=== PATIENT | female | born 1955 | race Caucasian/White ===

== ENCOUNTER 2017-10-22 12:12 | Emergency (ER) | END 2017-10-22 17:45 | disposition home or self-care (01) ==

== ENCOUNTER 2017-10-23 17:57 | Emergency (ER) | END 2017-10-24 01:50 | disposition home or self-care (01) ==

== ENCOUNTER 2017-11-08 21:46 | Emergency (ER) | END 2017-11-08 23:00 | disposition home or self-care (01) ==

== ENCOUNTER 2017-11-20 09:00 | Inpatient (IN) | END 2017-11-20 17:25 | disposition home or self-care (01) | DRG 74 ==

== ENCOUNTER 2017-12-04 21:45 | Emergency (ER) | END 2017-12-04 23:11 | disposition home or self-care (01) ==

== ENCOUNTER 2018-01-18 13:39 | Emergency (ER) | END 2018-01-18 15:24 | disposition home or self-care (01) ==

== ENCOUNTER 2018-06-14 16:59 | Emergency (ER) | END 2018-06-14 18:55 | disposition home or self-care (01) ==

== ENCOUNTER 2018-11-22 22:07 | Emergency (ER) | payer MEDICAID ==
[~2018-11-22] VITALS: Ht 160 cm; Wt 67.0 kg
[~2018-11-22 22:07] MED LIST: ASPI-817 PO; CAPS42.510 TOP; CHOLESTEROL PO; HYDR-3980 PO; HYDR-4011 PO; IBUP-1542 PO; LANT3I SC; LEVO250T22 PO; LYR75 PO; METF500T24 PO; METH5SOL3 PO; NAPH15DR OP; NOVO3I SC; PEG15DRO9 OP; PRED50TA PO; RANI150T35 PO
[2018-11-22 22:09] VITALS: Ht 160 cm; Wt 67.0 kg
[2018-11-23] MEDS ORDERED: IBUPROFEN 200 MG TAB PO ONE
[2018-11-23] MEDS ORDERED: CEPHALEXIN 500 MG CAP PO ONE
[2018-11-23] MEDS ORDERED: TRIMETHOPRIM/SULFAMETHOX (DS) TAB PO ONE
--- NOTE | 2018-11-23 00:01 | ERD ---
ER Documentation Chief Complaint Chief Complaint wound on right toe HPI This is a 63-year-old female who presents to the emergency room with complaint of pain and redness to right great toe X 1 week. States she had a pedicure 2 weeks ago and since that time the end of her toe is becoming red, swollen, painful. No fevers. Patient is diabetic, states her average blood sugar is around 125. ROS All systems reviewed and are negative except as per history of present illness. Medications Home Meds Active Scripts Ibuprofen* (Motrin*) 400 Mg Tab, 400 MG PO Q6, #30 TAB Prov:DERECK LARSEN NP 11/23/18 Cephalexin* (Keflex*) 500 Mg Capsule, 500 MG PO QID for 7 Days, #28 CAP Prov:DERECK LARSEN NP 11/23/18 Sulfamethoxazole/Trimethoprim* (Bactrim Ds* Tablet) 1 Each Tablet, 1 TAB PO BID for 7 Days, #14 TAB Prov:DERECK LARSEN NP 11/23/18 Peg 400/Hypromellose/Glycerin (Visine Dry Eye Relief Drop) 15 Ml Drops, 1 DROP OP Q4H for eye itchiness, #1 BOTTLE Prov:ANTHONY PYLE DO 06/14/18 Naphazoline Hcl/Phenir Mal (Naphcon-A Eye Drops) 15 Ml Drops, 2 DROP OP Q6H for eye itchiness, #1 BOTTLE Prov:ANTHONY PYLE DO 06/14/18 Prednisone* (Prednisone*) 50 Mg Tablet, 50 MG PO DAILY for 5 Days, #5 TAB Prov:ZEV BARRIENTOS MD 01/18/18 Hydrocodone/Acetaminophen ([place] 5-325 Tablet) 1 Each Tablet, 1 EACH PO BID for 7 Days, #14 TAB Prov:ZEV BARRIENTOS MD 01/18/18 Capsaicin (Capsaicin) 42.5 Gm Cream.gm., 1 APPLIC TOP QID, #1 TUB Prov:ZEV BARRIENTOS MD 01/18/18 Hydrocodone/Acetaminophen ([place] 10-325 Tablet) 1 Each Tablet, 1 TAB PO Q6H PRN for PAIN, #20 TAB Prov:JEFFREY MACARIO PA-C 12/04/17 Metformin Hcl* (Metformin Hcl*) 500 Mg Tablet, 500 MG PO WITH BREAKFAST DINNE, #60 TAB Prov:ALVAREZ FREEMAN MD 11/20/17 Insulin Aspart* (Novolog Insulin Pen*) 100 Unit/Ml Soln, 5 UNIT SC WITH MEALS for 30 Days Prov:ALVAREZ FREEMAN MD 11/20/17 Insulin Glargine* (Lantus*) 100 Unit/Ml Soln, 25 UNIT SC DAILY@20 for 30 Days Prov:ALVAREZ FREEMAN MD 11/20/17 Levofloxacin* (Levaquin*) 250 Mg Tablet, 250 MG PO DAILY@06 for 6 Days, TAB Prov:ALVAREZ FREEMAN MD 11/20/17 Methadone Hcl* (Methadone*) 5 Mg/5 Ml Solution, 1 MG PO Q12H, #10 Prov:ALVAREZ FREEMAN MD 11/20/17 Pregabalin* (Lyrica*) 75 Mg Capsule, 75 MG PO BID for 30 Days, CAP Prov:ALVAREZ FREEMAN MD 11/20/17 Hydrocodone/Acetaminophen ([place] 10-325 Tablet) 1 Each Tablet, 1 TAB PO Q6H PRN for PAIN, #30 TAB Prov:DAVID PAREDES DO 11/08/17 Ranitidine Hcl* (Zantac*) 150 Mg Tablet, 150 MG PO BID PRN for EPIGASTRIC PAIN, #30 TAB Prov:NARDA GREEN DO 10/23/17 Ibuprofen* (Motrin*) 600 Mg Tab, 600 MG PO Q6 PRN for PAIN, #30 TAB Prov:DARLING PIERCE MD 10/22/17 Reported Medications [Cholesterol] Unknown Strength No Conflict Check, 1 TAB PO QHS 10/22/17 Aspirin* (Aspirin* EC) 81 Mg Tablet.dr, 81 MG PO DAILY, TAB 10/22/17 Allergies Allergies: Coded Allergies: No Known Allergy (Unverified , 01/18/18) PMhx/Soc History of Surgery: Yes (cataract sx,cholecystectomy) Anesthesia Reaction: No Hx Neurological Disorder: No Hx Respiratory Disorders: No Hx Cardiac Disorders: No Hx Psychiatric Problems: No Hx Miscellaneous Medical Probl: Yes (dm) Hx Alcohol Use: No Hx Substance Use: No Hx Tobacco Use: No Smoking Status: Never smoker FmHx Family History: diabetes Physical Exam Vitals Vital Signs Date Temp Pulse Resp B/P (MAP) Pulse Ox O2 O2 Flow FiO2 Time Delivery Rate 11/23/18 98.2 77 18 168/90 100 Room Air 00:12 (116) 11/22/18 98.0 87 18 176/84 99 22:09 (114) Physical Exam Const: No acute distress Head: Atraumatic Eyes: Normal Conjunctiva ENT: Normal External Ears, Nose and Mouth. Neck: Full range of motion. No meningismus. Resp: Clear to auscultation bilaterally Cardio: Regular rate and rhythm, no murmurs Abd: Soft, non tender, non distended. Normal bowel sounds Skin: No petechiae or rashes. Redness to anterior great toe under nail. No fluctuance, no induration, mild swelling. Ext: No cyanosis, or edema, +csm Neur: Awake and alert Psych: Normal Mood and Affect Results 24 hrs Current Medications Medications Dose Sig/Ilsa Start Time Status Last (Trade) Ordered Route PRN Stop Time Admin Dose Reason Admin 1 tab ONCE ONCE 11/23/18 DC 11/23/18 Trimethoprim/ PO 00:00 00:10 11/23/18 00:01 Sulfamethoxaz ole (Bactrim (Ds)) Cephalexin 500 mg ONCE ONCE 11/23/18 DC 11/23/18 (Keflex) PO 00:00 00:10 11/23/18 00:01 Ibuprofen 400 mg ONCE ONCE 11/23/18 DC 11/23/18 (Motrin) PO 00:00 00:10 11/23/18 00:01 Procedures/MDM This is a 63-year-old female who presents to the emergency room with pain to great right toe after pedicure. ED COURSE: The patient was stable throughout ED course. DIAGNOSTIC IMAGING: none indicated at this time. PROCEDURES: None. Incision and drainage is not indicated at this time as there was no fl uctuance or severe pain or paronychia. Considering patient is diabetic conservative management was discussed with patient and daughter and chosen with instructions for frequent warm soaks, antibiotics, and follow-up in 3-5 days. Discussed potential for I&D with worsening of swelling or pain. MEDICATIONS GIVEN: Ibuprofen, Keflex, Bactrim DS Patient tolerated medication well with no adverse reactions. Patient reported improvement in pain. MDM: This patients soft tissue infection appears to be appropriate for outpatient treatment with close follow-up for reevaluation by a clinician within 24-48 hours. A serious, rapidly progressive infectious process is unlikely based upon the patients presentation and appearance of the infection. Antibiotic treatment has been initiated here and response to treatment will be based on reassessment at close follow-up. The patient has been instructed on signs and symptoms of acute progression of infection and to return immediately if any of these occur. DISPOSITION: The patient has been discharge home to follow-up with community physician. Departure Condition: Stable Patient Instructions: Cellulitis Referrals: [facility] Additional Instructions: Thank you very much for allowing us to participate in your care. Your health and safety is our top priority at [facility]. Use warm soaks of the toe 2-3 times per day. Complete entire course of anti biotics. Use ibuprofen for pain and comfort. Return to the emergency room in 3-5 days for reevaluation. Have prescriptions filled and follow precisely the directions on the label. If the symptoms get worse return to the Emergency Department immediately. DERECK LARSEN NP Nov 23, 2018 00:01
[2018-11-23] MEDS ORDERED: CEPH-443 PO (00:02)
[2018-11-23] MEDS ORDERED: SULF1TAB31 PO (00:02)
[2018-11-23] MEDS ORDERED: IBUP-1561 PO (00:02)
[2018-11-23 00:12] VITALS: BP 168/90; PULSE 77; RESP 18
== END 2018-11-23 00:13 | disposition home or self-care (01) ==
LOC: FTE 22:07
DX: M79.674 Pain in right toe(s) (principal); E11.9 Type 2 diabetes mellitus without complications; Z79.4 Long term (current) use of insulin; Z79.82 Long term (current) use of aspirin
CPT/HCPCS: Z7502; Z7610; 99283

== ENCOUNTER 2019-03-15 15:47 | Inpatient (IN) | payer MEDICAID ==
[~2019-03-15] VITALS: Ht 154.9 cm; Wt 61.9 kg
[~2019-03-15 15:47] MED LIST changes: +CEPH-443 PO; +IBUP-1561 PO; +NITR100C7 PO; +SULF1TAB31 PO
--- NOTE | 2019-03-15 16:12 | ERD ---
ER Documentation Chief Complaint Chief Complaint dizziness and nausea x 4 days HPI The patient is a 64-year-old female, presenting to the ER because of fatigue, headache, dizziness, nausea, back pain for the last 4 days, worse today. She denies fever, chills, neck pain, chest pain, dyspnea, abdominal pain, vomiting, dysuria, diarrhea. She does not smoke nor drink Past medical history: Diabetes mellitus Past surgical history: Appendectomy, hysterectomy ROS All systems reviewed and are negative except as per history of present illness. Medications Home Meds Reported Medications Insulin Glargine* (Lantus*) 100 Unit/Ml Soln, 25 UNIT SC DAILY, #1 VIAL 03/15/19 Insulin Aspart* (Novolog Insulin Pen*) 100 Unit/Ml Soln, 5 UNIT SC WITH MEALS, EA 03/15/19 Discontinued Reported Medications [Cholesterol] Unknown Strength No Conflict Check, 1 TAB PO QHS 10/22/17 Aspirin* (Aspirin* EC) 81 Mg Tablet.dr, 81 MG PO DAILY, TAB 10/22/17 Discontinued Scripts Ibuprofen* (Motrin*) 400 Mg Tab, 400 MG PO Q6, #30 TAB Prov:DERECK LARSEN NP 11/23/18 Cephalexin* (Keflex*) 500 Mg Capsule, 500 MG PO QID for 7 Days, #28 CAP Prov:DERECK LARSEN NP 11/23/18 Sulfamethoxazole/Trimethoprim* (Bactrim Ds* Tablet) 1 Each Tablet, 1 TAB PO BID for 7 Days, #14 TAB Prov:DERECK LARSEN NP 11/23/18 Peg 400/Hypromellose/Glycerin (Visine Dry Eye Relief Drop) 15 Ml Drops, 1 DROP OP Q4H for eye itchiness, #1 BOTTLE Prov:ANTHONY PYLE DO 06/14/18 Naphazoline Hcl/Phenir Mal (Naphcon-A Eye Drops) 15 Ml Drops, 2 DROP OP Q6H for eye itchiness, #1 BOTTLE Prov:ANTHONY PYLE DO 06/14/18 Prednisone* (Prednisone*) 50 Mg Tablet, 50 MG PO DAILY for 5 Days, #5 TAB Prov:ZEV BARRIENTOS MD 01/18/18 Hydrocodone/Acetaminophen ([place] 5-325 Tablet) 1 Each Tablet, 1 EACH PO BID for 7 Days, #14 TAB Prov:ZEV BARRIENTOS MD 01/18/18 Capsaicin (Capsaicin) 42.5 Gm Cream.gm., 1 APPLIC TOP QID, #1 TUB Prov:ZEV BARRIENTOS MD 01/18/18 Hydrocodone/Acetaminophen ([place] 10-325 Tablet) 1 Each Tablet, 1 TAB PO Q6H PRN for PAIN, #20 TAB Prov:JEFFREY MACARIO PA-C 12/04/17 Metformin Hcl* (Metformin Hcl*) 500 Mg Tablet, 500 MG PO WITH BREAKFAST DINNE, #60 TAB Prov:ALVAREZ FREEMAN MD 11/20/17 Insulin Aspart* (Novolog Insulin Pen*) 100 Unit/Ml Soln, 5 UNIT SC WITH MEALS for 30 Days Prov:ALVAREZ FREEMAN MD 11/20/17 Insulin Glargine* (Lantus*) 100 Unit/Ml Soln, 25 UNIT SC DAILY@20 for 30 Days Prov:ALVAREZ FREEMAN MD 11/20/17 Levofloxacin* (Levaquin*) 250 Mg Tablet, 250 MG PO DAILY@06 for 6 Days, TAB Prov:ALVAREZ FREEMAN MD 11/20/17 Methadone Hcl* (Methadone*) 5 Mg/5 Ml Solution, 1 MG PO Q12H, #10 Prov:ALVAREZ FREEMAN MD 11/20/17 Pregabalin* (Lyrica*) 75 Mg Capsule, 75 MG PO BID for 30 Days, CAP Prov:ALVAREZ FREEMAN MD 11/20/17 Hydrocodone/Acetaminophen ([place] 10-325 Tablet) 1 Each Tablet, 1 TAB PO Q6H PRN for PAIN, #30 TAB Prov:DAVID PAREDES DO 11/08/17 Ranitidine Hcl* (Zantac*) 150 Mg Tablet, 150 MG PO BID PRN for EPIGASTRIC PAIN, #30 TAB Prov:NARDA GREEN DO 10/23/17 Ibuprofen* (Motrin*) 600 Mg Tab, 600 MG PO Q6 PRN for PAIN, #30 TAB Prov:DARLING PIERCE MD 10/22/17 Allergies Allergies: Coded Allergies: No Known Allergy (Unverified , 03/15/19) PMhx/Soc History of Surgery: Yes (cataract sx,cholecystectomy) Anesthesia Reaction: No Hx Neurological Disorder: No Hx Respiratory Disorders: No Hx Cardiac Disorders: No Hx Psychiatric Problems: No Hx Miscellaneous Medical Probl: Yes (dm) Hx Alcohol Use: No Hx Substance Use: No Hx Tobacco Use: No Physical Exam Vitals Vital Signs Date Temp Pulse Resp B/P (MAP) Pulse Ox O2 O2 Flow FiO2 Time Delivery Rate 03/15/19 98.8 76 16 131/56 96 Room Air 18:05 (81) 03/15/19 98.8 93 30 83/46 (58) 100 Room Air 16:13 03/15/19 98.8 98 16 81/51 (61) 98 15:54 Physical Exam Const: No acute distress. Dehydrated Head: Atraumatic. Eyes: Normal Conjunctiva. ENT: Normal External Ears, Nose and Mouth. Neck: Full range of motion. No meningismus. Resp: Clear to auscultation bilaterally. Cardio: Regular rate and rhythm. Abd: Soft, non distended, normal bowel sounds, non tender. Skin: No petechiae or rashes. Back: No midline or flank tenderness. Ext: No cyanosis, or edema. Neur: Awake and alert. No focal deficit Psych: Normal Mood and Affect. Result Diagram: 03/15/19 1631 03/15/19 1631 Results 24 hrs Laboratory Tests Test 03/15/19 16:19 03/15/19 16:30 03/15/19 16:31 03/15/19 16:32 Bedside Glucose 386 mg/dL Prothrombin Time 12.8 Sec Prothrombin Time 1.0 Ratio INR International 0.95 Normalized Ratio Activated 25.2 Sec Partial Thromboplast Time White Blood Count 9.1 10^3/ul Red Blood Count 4.05 10^6/ul Hemoglobin 12.3 g/dl Hematocrit 35.7 % Mean Corpuscular 88.1 fl Volume Mean Corpuscular 30.4 pg Hemoglobin Mean Corpuscular 34.5 g/dl Hemoglobin Concent Red Cell Distribution 12.5 % Width Platelet Count 312 10^3/UL Mean Platelet Volume 10.3 fl Immature Granulocytes 0.200 % % Neutrophils % 62.8 % Lymphocytes % 28.8 % Monocytes % 5.5 % Eosinophils % 2.0 % Basophils % 0.7 % Nucleated Red Blood 0.0 /100WBC Cells % Immature Granulocytes 0.020 10^3/ul # Neutrophils # 5.7 10^3/ul Lymphocytes # 2.6 10^3/ul Monocytes # 0.5 10^3/ul Eosinophils # 0.2 10^3/ul Basophils # 0.1 10^3/ul Nucleated Red Blood 0.0 10^3/ul Cells # Urine Color GALE Urine Clarity CLOUDY Urine pH 5.0 Urine Specific 1.025 [place] Urine Ketones NEGATIVE mg/dL Urine Nitrite NEGATIVE mg/dL Urine Bilirubin NEGATIVE mg/dL Urine Urobilinogen NEGATIVE mg/dL Urine Leukocyte 2+ Laney/ul Esterase Urine Microscopic RBC 8 /HPF Urine Microscopic WBC 98 /HPF Urine Squamous MANY /HPF Epithelial Cells Urine Bacteria MODERATE /HPF Urine Hyaline Casts FEW /HPF Urine Mucus FEW /HPF Urine Hemoglobin 1+ mg/dL Urine Glucose 2+ mg/dL Urine Total Protein 2+ mg/dl Sodium Level 138 mmol/L Potassium Level 4.0 mmol/L Chloride Level 102 mmol/L Carbon Dioxide Level 23 mmol/L Anion Gap 13 Blood Urea Nitrogen 22 mg/dl Creatinine 1.47 mg/dl Est Glomerular 36 mL/min Filtrat Rate mL/min Glucose Level 367 mg/dl Calcium Level 10.0 mg/dl Total Bilirubin 0.5 mg/dl Direct Bilirubin 0.00 mg/dl Indirect Bilirubin 0.5 mg/dl Aspartate Amino 19 IU/L Transf (AST/SGOT) Alanine 29 IU/L Aminotransferase (ALT /SGPT) Alkaline Phosphatase 82 IU/L Troponin I < 0.012 ng/ml Total Protein 7.6 g/dl Albumin 4.3 g/dl Globulin 3.30 g/dl Albumin/Globulin 1.30 Ratio Lactic Acid Level 2.4 mmol/L Test 03/15/19 16:35 03/15/19 16:45 POC Venous Lactate 1.9 mmol/L Bedside Urine pH 5.0 (LAB) Bedside Urine Protein 2+ (LAB) Bedside Urine Glucose 0.1% (UA) Bedside Urine Ketones 1+ (LAB) Bedside Urine Blood Negative Bedside Urine Nitrite Negative (LAB) Bedside Urine 2+ Leukocyte Esterase (L Current Medications Medications Dose Sig/Ilsa Start Time Status Last (Trade) Ordered Route PRN Stop Time Admin Dose Reason Admin Sodium 1,640 ml BOLUS OVER 2 03/15/19 DC 03/15/19 Chloride HOURS STAT 16:18 03/15/19 16:21 (NS) IV* 16:20 Piperacillin 100 ml @ ONCE ONCE 03/15/19 DC 03/15/19 Sod/ 200 mls/hr IVPB 18:00 03/15/19 18:02 Tazobactam 18:29 Sod Vancomycin 250 ml @ ONCE ONCE 03/15/19 03/15/19 HCl 125 mls/hr IVPB 18:00 03/15/19 19:10 19:59 IV Flush 3 ml PER 03/15/19 (NS 3 ml) PROTOCOL IV 18:30 Ondansetron 4 mg Q6H PRN 03/15/19 HCl (Zofran IV 18:30 Inj) NAUSEA/VOMITI NG 650 mg Q6H PRN 03/15/19 Acetaminophen PO .PAIN 1-3 18:30 (Tylenol OR TEMP Tab) Ceftriaxone 50 ml @ Q24H IVPB 03/15/19 Sodium 100 mls/hr 18:30 Lactated 1,000 ml @ Q1H ONCE 03/15/19 DC Ringer's 1,000 mls/hr IV 18:30 03/15/19 19:29 Discontinue ONCE ONCE 03/15/19 DC Miscellaneous current oral XX 18:30 03/15/19 sulfonylur... 18:42 Information (* Miscellaneous Pharmacy Order) Diagnostic 1 ea 02 XX 03/16/19 Test (Pha) 02:00 (Accu-Chek) Insulin 30 units DAILY@199903/15/19 Glargine SC 20:00 (Lantus) ONCE ONCE 03/15/19 DC Miscellaneous HYPOGLYCEMIA XX 18:30 03/15/19 PROTOCOL 18:42 Information w... (* Miscellaneous Pharmacy Order) Insulin NOVOLOG WITH MEALS 03/15/19 Aspart *MODERATE* BEDTIME SC 21:00 (Novolog ALGORITHM Insulin Pen) Azithromycin 250 ml @ Q24H IVPB 03/15/19 DC 250 mls/hr 19:00 03/15/19 19:00 1 ea NOTE XX 03/15/19 Miscellaneous 19:00 Information Glucose 15 gm Q15M PRN 03/15/19 (Glutose) PO DECREASED 19:00 GLUCOSE Glucose 22.5 gm Q15M PRN 03/15/19 (Glutose) PO DECREASED 19:00 GLUCOSE Dextrose 25 ml Q15M PRN 03/15/19 (D50w IV DECREASED 19:00 Syringe) GLUCOSE Dextrose 50 ml Q15M PRN 03/15/19 (D50w IV DECREASED 19:00 Syringe) GLUCOSE Glucagon 1 mg Q15M PRN 03/15/19 (Glucagen) IM DECREASED 19:00 GLUCOSE Glucose 15 gm Q15M PRN 03/15/19 (Glutose) BUCCAL 19:00 DECREASED GLUCOSE Procedures/MDM [place] [address] Radiology Main Line: [phone] DIAGNOSTIC IMAGING REPORT Patient: TIANA TOMLIN : 1955 Age: 64 Sex: F MR #: [id number] DOS: 03/15/19 1618 Ordering MD: ANTHONY GARCÍA MD Location: E/R Room/Bed: PROCEDURE: XR Chest, 1 View CLINICAL INDICATION: Sepsis. TECHNIQUE: Frontal view of the chest. COMPARISON: 11/23/2014 (11/21/2014) FINDINGS: LUNGS: Unremarkable. No consolidation. PLEURAL SPACE: Unremarkable. No pneumothorax. HEART: Unremarkable. No cardiomegaly. MEDIASTINUM: Unremarkable. BONES/JOINTS: Mild degenerative thoracic spine changes. IMPRESSION: 1. No acute cardiopulmonary disease demonstrated. 2. There is no significant interval change from the previous study. RPTAT: [facility] Rodríguez Valdez, Physician Skip Pitman Date Time Electronically viewed and signed by Rodríguez Valdez, Physician Skip Pitman on 03/15/2019 17:03 RmC/ CC: ANTHONY GARCÍA MD [id number] EKG: Read by emergency physician Rate/Rhythm: Normal Sinus Rhythm 80 beats/min QRS, ST, T-waves: No ST elevation, no T inversion Impression: Normal EKG MEDICAL MAKING DECISION: The patient is a 64-year-old female, presenting to the ER because of acute severe sepsis, acute cystitis Initial POC lactate was 1.9 but the same specimen serum lactate was 2.4 She was treated with normal saline 30 mm/kg IV, Zosyn IV, vancomycin IV for acute severe sepsis The differential diagnoses considered include but are not limited to UTI, pyelonephritis, pneumonia, dehydration MDM: Patient's infectious symptoms have not stabilized and the patient is at risk of rapid decompensation. The patient will be admitted for careful hydration, antibiotic therapy, and infectious source control. SEVERE SEPSIS CRITERIA: Infectious source: uti End organ damage indicated by: [Lactate > 2.0 mmol/L Hypotension (SBP < 90 or >40 mmHG drop or MAP < 65) SEPSIS MANAGEMENT Time of recognition of severe sepsis: 3:45p 3 HOUR BUNDLE Blood cultures x 2 before broad-spectrum antibiotics: [Yes] 30 ml/kg NS bolus [Completed] Initial lactate []2.4 Repeat lactate Pending SEPTIC SHOCK ASSESSMENT: [No] lactic acid > 4.0 [No] Persistent hypotension (SBP < 90 or 40 mmHg drop, MAP < 65) despite 30 mL/kg IV fluid bolus CRITICAL CARE Critical care time [35] minutes Emergent fluid management while maintaining close respiratory support. Provision of immediate and broad-spectrum antibiotic therapy. Simultaneous assessment for possible sources in order to direct targeted therapy. Consi deration for invasive and chemical support to prevent cardiopulmonary collapse. Critical care time is independent of procedures performed. Departure Diagnosis: Primary Impression: Severe sepsis Additional Impressions: UTI (urinary tract infection) Renal insufficiency Condition: Stable Comments I discussed the findings with the patient. I notified the patient with Dr. Velazquez at 6p via [employer], who was made aware of the lab, the treatment, the patient condition. The patient is admitted to Tel Disclaimer: Inadvertent spelling and grammatical errors are likely due to EHR/dictation software use and do not reflect on the overall quality of patient care. Also, please note that the electronic time recorded on this note does not necessarily reflect the actual time of the patient encounter. ANTHONY GARCÍA MD Mar 15, 2019 16:12
[2019-03-15] MEDS ORDERED: SODIUM CHLORIDE 0.9% 1L BAG IV* STA (16:18)
[2019-03-15] MEDS ORDERED: PIPER-TAZO 3.375 GM IV (PMX) 100 ML IVPB ONE (18:00)
[2019-03-15] MEDS ORDERED: VANCOMYCIN 1 GM (PMX) 250 ML IVPB ONE (18:00)
[2019-03-15] MEDS ORDERED: LACTATED RINGER'S 1,000 ML IV ONE (18:30)
[2019-03-15] MEDS ORDERED: NACL 0.9% 3 ML SYG IV SCH (18:30)
[2019-03-15] MEDS ORDERED: ONDANSETRON 4 MG INJ IV PRN (18:30)
--- NOTE | 2019-03-15 18:40 | HP ---
Date/Time of Note Date/Time of Note DATE: 03/15/19 TIME: 18:30 Assessment/Plan VTE Prophylaxis SCD applied (from Nsg): Yes Pharmacological prophylaxis: NA/contraindicated Pharm contraindication: low risk/ambulating Lines/Catheters IV Catheter Type (from Nrsg): Saline Lock Assessment/Plan Assessment/Plan 64 yo woman with history of diabetes type II presents hypotensive with nausea, vomiting, also hyperglycemic. #Severe sepsis - tachypenic, tachycardic, hypotensive, elevated lactic acid - Likely from UTI. - Admit to med/surg, aggressive IV fluids and antibiotics. - Blood, urine cultures. Also flu swab. #UTI - She denies dysuria but does have dirty urine and is septic. - IV ceftriaxone q24h - Follow up cultures #Diabetes type II - At home on insulin 26u BID - Will switch to glargine qhs 30u, titrate accordingly - Also sliding scale. DVT: SCDs GI: None Result Diagram: 03/15/19 1631 03/15/19 1631 HPI/ROS Admit Date/Time Admit Date/Time 15 March 2019 Hx of Present Illness Ms. Martin is a 64 yo woman who presents with progressively worsening dizziness and nausea over the past 4 days. She was in her usual state of health until about 4 days ago. She gradually developed generalized malaise, nausea, and dizziness which has worsened over the past 4 days. Also complains of mid back pain. Has had leg cramps for a month. She does have mild pleuritic chest pain with deep inspiration. She vomited once this morning, nonbloody. She denies dysuria. She has insulin-dependent diabetes, she takes 26 units of insulin twice daily. She says blood sugars are usually below 180s and she was surprised to see a blood sugar greater than 300 in the emergency room. In the ED she was afebrile, hypotensive to 81/46, P 93, tachypenic to 30. Labs notable for glucose 367, lactate 2.4, negative troponin. UA had leukesterase and bacteria. ROS Denies fever, chills, night sweats, weight loss, anorexia, headache, vision changes, dysphagia, palpitations, diarrhea, melena, hematochezia. PMH/Family/Social Past Medical History Type II diabetes, insulin-dependent History of shingles on the chest. Medications Current Medications Piperacillin Sod/ Tazobactam Sod 100 ml @ 200 mls/hr ONCE ONCE IVPB Last administered on 03/15/19at 18:02; Admin Dose 200 MLS/HR; Start 03/15/19 at 18:00; Stop 03/15/19 at 18:29 Vancomycin HCl 250 ml @ 125 mls/hr ONCE ONCE IVPB ; Start 03/15/19 at 18:00; Stop 03/15/19 at 19:59 IV Flush (NS 3 ml) 3 ml PER PROTOCOL IV ; Start 03/15/19 at 18:30; Status UNV Ondansetron HCl (Zofran Inj) 4 mg Q6H PRN IV NAUSEA/VOMITING; Start 03/15/19 at 18:30; Status UNV Acetaminophen (Tylenol Tab) 650 mg Q6H PRN PO .PAIN 1-3 OR TEMP; Start 03/15/19 at 18:30; Status UNV Ceftriaxone Sodium 50 ml @ 100 mls/hr Q24H IVPB ; Start 03/15/19 at 18:30; Status UNV Lactated Ringer's 1,000 ml @ 1,000 mls/hr Q1H ONCE IV ; Start 03/15/19 at 18:30; Stop 03/15/19 at 19:29; Status UNV Coded Allergies: No Known Allergy (Unverified , 01/18/18) Past Surgical History JOHN PAUL-BSO appendectomy cataract surgery Past Surgical Hx: appendectomy, cholecystectomy, other Family History Significant Family History: no pertinent family hx Social History Lives alone, is a manager management Alcohol Use: none Smoking Status: Never smoker Drug Use: none Exam/Review of Systems Vital Signs Vitals Vital Signs Date Temp Pulse Resp B/P (MAP) Pulse Ox O2 O2 Flow FiO2 Time Delivery Rate 03/15/19 98.8 76 16 131/56 96 Room Air 18:05 (81) Exam Exam Gen: Fatigued appearing woman in no acute distress. Eyes: PERRL, no icterus HEENT: Dry mucous membranes, clear oropharynx Neck: Supple, no lymphadenopathy, no jugular venous distension Card: Regular rate and rhythm, no murmurs Pulm: Clear to auscultation bilaterally. Back: Mild midline spine tenderness around T5-8. Abd: Soft, nontender to palpation, nondistended. Normoactive bowel sounds. Ext: No cyanosis/clubbing/edema. Skin: No jaundice. Warm, dry, well perfused. ELVIRA BOBBY MD Mar 15, 2019 18:40
[2019-03-15] MEDS ORDERED: AZITHROMYCIN 500MG/NS (PMX) 250 ML IVPB SCH (19:00)
[2019-03-15] MEDS ORDERED: GLUCOSE GEL 15 GRAM TUBE PO PRN ×2 (19:00)
[2019-03-15] MEDS ORDERED: DEXTROSE 50% 50 ML SYRINGE IV PRN ×2 (19:00)
[2019-03-15] MEDS ORDERED: GLUCOSE GEL 15 GRAM TUBE BUCCAL PRN (19:00)
[2019-03-15] MEDS ORDERED: GLUCAGON 1 MG INJ IM PRN (19:00)
[2019-03-15 21:00] VITALS: Ht 154.9 cm; Wt 61.9 kg
[2019-03-15] MEDS: CEFTRIAXONE 1 GM/50 ML (PMX) 50 ML IVPB SCH (21:41)
[2019-03-15] MEDS: INSULIN ASPART [NOVOLOG] 3 ML PEN SC SCH (21:47)
[2019-03-15] MEDS: INSULIN GLARGINE [LANTus] (100 UNITS/ML) SYG SC SCH (21:48)
[2019-03-15 21:49] VITALS: BP 133/62; PULSE 75; RESP 19
[2019-03-16] VITALS: BP 109/55; PULSE 72; RESP 18
[2019-03-16] MEDS: ACCU-CHEK XX SCH (02:15)
[2019-03-16 04:00] VITALS: BP 105/56; PULSE 66; RESP 19
[2019-03-16 07:15] VITALS: BP 106/54; PULSE 69; RESP 16
[2019-03-16] MEDS: INSULIN ASPART [NOVOLOG] 3 ML PEN SC SCH ×4 (08:00→20:47)
[2019-03-16] MEDS: ACETAMINOPHEN 325 MG TAB PO PRN (08:18)
--- NOTE | 2019-03-16 11:16 | PN ---
Date/Time of Note Date/Time of Note DATE: 03/16/19 TIME: 11:12 Assessment/Plan VTE Prophylaxis Risk score (from Nsg)>0 risk: 3 SCD applied (from Nsg): Yes Pharmacological prophylaxis: NA/contraindicated Pharm contraindication: low risk/ambulating Lines/Catheters IV Catheter Type (from Nrs): Peripheral IV Assessment/Plan Assessment/Plan 64 yo woman with history of diabetes type II presents hypotensive with nausea, vomiting, also hyperglycemic. #Severe sepsis - tachypenic, tachycardic, hypotensive, elevated lactic acid - Likely from UTI. - Continue IV antibiotics. - Blood, urine cultures. Also flu swab. #UTI - She denies dysuria but does have dirty urine and is septic. - IV ceftriaxone q24h - Urine culture growing gram negative rods, follow up sensitivities. #Diabetes type II - At home on insulin 26u BID - Will switch to glargine qhs 30u, titrate accordingly - Also sliding scale. DVT: SCDs GI: None Result Diagram: 03/16/1931 03/16/19530 Subjective 24 Hr Interval Summary Free Text/Dictation No acute overnight events. Still nauseated and has vertigo, but symptoms improving. She is walking. Exam/Review of Systems Exam Vitals Vital Signs Date Temp Pulse Resp B/P (MAP) Pulse Ox O2 O2 Flow FiO2 Time Delivery Rate 03/16/19 98.4 69 16 106/54 97 Room Air 07:15 (71) Intake and Output 03/15/19 03/15/19 03/16/19 1515:00 23:00 07:00 IntakeIntake Total 50 ml 250 ml BalanceBalance 50 ml 250 ml Exam Gen: Fatigued appearing woman in no acute distress. Eyes: PERRL, no icterus HEENT: Moist mucous membranes, clear oropharynx Neck: Supple, no lymphadenopathy, no jugular venous distension Card: Regular rate and rhythm, no murmurs Pulm: Clear to auscultation bilaterally. Back: Mild midline spine tenderness around T5-8. Abd: Soft, nontender to palpation, nondistended. Normoactive bowel sounds. Ext: No cyanosis/clubbing/edema. Skin: No jaundice. Warm, dry, well perfused. Results Results 24hrs Laboratory Tests Test 03/15/19 16:19 03/15/19 16:30 03/15/19 16:31 03/15/19 16:32 Bedside Glucose 386 H Prothrombin Time 12.8 Prothrombin Time Ratio 1.0 INR International 0.95 Normalized Ratio Activated 25.2 Partial Thromboplast Time White Blood Count 9.1 Red Blood Count 4.05 L Hemoglobin 12.3 Hematocrit 35.7 L Mean Corpuscular Volume 88.1 Mean Corpuscular 30.4 Hemoglobin Mean Corpuscular 34.5 Hemoglobin Concent Red Cell Distribution 12.5 Width Platelet Count 312 # Mean Platelet Volume 10.3 Immature Granulocytes % 0.200 Neutrophils % 62.8 Lymphocytes % 28.8 Monocytes % 5.5 Eosinophils % 2.0 Basophils % 0.7 Nucleated Red Blood 0.0 Cells % Immature Granulocytes # 0.020 Neutrophils # 5.7 Lymphocytes # 2.6 Monocytes # 0.5 Eosinophils # 0.2 Basophils # 0.1 Nucleated Red Blood 0.0 Cells # Urine Color GALE Urine Clarity CLOUDY A Urine pH 5.0 Urine Specific [place] 1.025 Urine Ketones NEGATIVE Urine Nitrite NEGATIVE Urine Bilirubin NEGATIVE Urine Urobilinogen NEGATIVE Urine Leukocyte Esterase 2+ H Urine Microscopic RBC 8 H Urine Microscopic WBC 98 H Urine Squamous MANY A Epithelial Cells Urine Bacteria MODERATE Urine Hyaline Casts FEW A Urine Mucus FEW A Urine Hemoglobin 1+ H Urine Glucose 2+ H Urine Total Protein 2+ H Sodium Level 138 Potassium Level 4.0 Chloride Level 102 Carbon Dioxide Level 23 Anion Gap 13 Blood Urea Nitrogen 22 H Creatinine 1.47 H Est Glomerular Filtrat 36 L Rate mL/min Glucose Level 367 H Calcium Level 10.0 Total Bilirubin 0.5 Direct Bilirubin 0.00 Indirect Bilirubin 0.5 Aspartate Amino 19 Transf (AST/SGOT) Alanine 29 Aminotransferase (ALT/SG PT) Alkaline Phosphatase 82 Troponin I < 0.012 Total Protein 7.6 Albumin 4.3 Globulin 3.30 H Albumin/Globulin Ratio 1.30 Lactic Acid Level 2.4 *H Test 03/15/19 16:35 03/15/19 16:45 03/15/19 21:06 03/15/19 21:25 POC Venous Lactate 1.9 Bedside Urine pH (LAB) 5.0 Bedside Urine Protein 2+ H (LAB) Bedside Urine Glucose 0.1% H (UA) Bedside Urine Ketones 1+ H (LAB) Bedside Urine Blood Negative Bedside Urine Nitrite Negative (LAB) Bedside Urine 2+ H Leukocyte Esterase (L Lactic Acid Level 1.6 Bedside Glucose 295 H Test 03/16/19 02:14 03/16/19 05:31 03/16/19 08:03 Bedside Glucose 139 80 White Blood Count 7.1 # Red Blood Count 3.69 L Hemoglobin 11.0 L Hematocrit 33.0 L Mean Corpuscular Volume 89.4 Mean Corpuscular 29.8 Hemoglobin Mean Corpuscular 33.3 Hemoglobin Concent Red Cell Distribution 12.5 Width Platelet Count 271 Mean Platelet Volume 9.9 Immature Granulocytes % 0.100 Neutrophils % 45.4 Lymphocytes % 40.4 Monocytes % 6.8 Eosinophils % 6.3 Basophils % 1.0 Nucleated Red Blood 0.0 Cells % Immature Granulocytes # 0.010 Neutrophils # 3.2 Lymphocytes # 2.9 Monocytes # 0.5 Eosinophils # 0.5 Basophils # 0.1 Nucleated Red Blood 0.0 Cells # Sodium Level 145 H Potassium Level 4.0 Chloride Level 114 H Carbon Dioxide Level 26 Anion Gap 5 # Blood Urea Nitrogen 19 Creatinine 0.68 Est Glomerular Filtrat > 60 Rate mL/min Glucose Level 84 # Hemoglobin A1c 11.3 H Calcium Level 9.2 Phosphorus Level 4.6 Magnesium Level 1.9 Total Bilirubin 0.3 Direct Bilirubin 0.00 Indirect Bilirubin 0.3 Aspartate Amino 17 Transf (AST/SGOT) Alanine 26 Aminotransferase (ALT/SG PT) Alkaline Phosphatase 55 Total Protein 6.2 # Albumin 3.2 #L Globulin 3.00 Albumin/Globulin Ratio 1.06 Triglycerides Level 86 Cholesterol Level 211 H LDL Cholesterol, 157 Calculated HDL Cholesterol 37 Cholesterol/HDL Ratio 5.7 Thyroid Stimulating 0.939 Hormone (TSH) Medications Medication Current Medications IV Flush (NS 3 ml) 3 ml PER PROTOCOL IV ; Start 03/15/19 at 18:30 Ondansetron HCl (Zofran Inj) 4 mg Q6H PRN IV NAUSEA/VOMITING; Start 03/15/19 at 18:30 Acetaminophen (Tylenol Tab) 650 mg Q6H PRN PO .PAIN 1-3 OR TEMP Last administered on 03/16/19at 08:18; Admin Dose 650 MG; Start 03/15/19 at 18:30 Ceftriaxone Sodium 50 ml @ 100 mls/hr Q24H IVPB Last administered on 03/15/19at 21:41; Admin Dose 100 MLS/HR; Start 03/15/19 at 18:30 Diagnostic Test (Pha) (Accu-Chek) 1 ea 02 XX Last administered on 03/16/19at 02:15; Admin Dose 1 EA; Start 03/16/19 at 02:00 Insulin Glargine (Lantus) 30 units DAILY@2000 SC Last administered on 03/15/19at 21:48; Admin Dose 30 UNITS; Start 03/15/19 at 20:00 Insulin Aspart (Novolog Insulin Pen) NOVOLOG *MODERATE* ALGORITHM WITH MEALS BEDTIME SC Last administered on 03/15/19at 21:47; Admin Dose 3 UNIT; Start 03/15/19 at 21:00 Miscellaneous Information 1 ea NOTE XX ; Start 03/15/19 at 19:00 Glucose (Glutose) 15 gm Q15M PRN PO DECREASED GLUCOSE; Start 03/15/19 at 19:00 Glucose (Glutose) 22.5 gm Q15M PRN PO DECREASED GLUCOSE; Start 03/15/19 at 19:00 Dextrose (D50w Syringe) 25 ml Q15M PRN IV DECREASED GLUCOSE; Start 03/15/19 at 19:00 Dextrose (D50w Syringe) 50 ml Q15M PRN IV DECREASED GLUCOSE; Start 03/15/19 at 19:00 Glucagon (Glucagen) 1 mg Q15M PRN IM DECREASED GLUCOSE; Start 03/15/19 at 19:00 Glucose (Glutose) 15 gm Q15M PRN BUCCAL DECREASED GLUCOSE; Start 03/15/19 at 19:00 ELVIRA BOBBY MD Mar 16, 2019 11:16
[2019-03-16 11:19] VITALS: BP 133/81; PULSE 72; RESP 16
[2019-03-16 15:10] VITALS: BP 128/74; PULSE 75; RESP 20
[2019-03-16] MEDS: CEFTRIAXONE 1 GM/50 ML (PMX) 50 ML IVPB SCH (17:34)
[2019-03-16 20:00] VITALS: BP 172/74; PULSE 70; RESP 19
[2019-03-16] MEDS: INSULIN GLARGINE [LANTus] (100 UNITS/ML) SYG SC SCH (20:43)
[2019-03-16] MEDS ORDERED: INSULIN ASPART [NOVOLOG] 3 ML PEN SC ONE (22:00)
[2019-03-16] MEDS ORDERED: ACCU-CHEK XX ONE (22:00)
[2019-03-17] VITALS (7 sets, daily range): BP systolic 116–142; BP diastolic 66–78; PULSE 70–85; RESP 18–20
[2019-03-17] MEDS: ACCU-CHEK XX SCH (02:46)
[2019-03-17] MEDS: INSULIN ASPART [NOVOLOG] 3 ML PEN SC SCH ×5 (08:04→20:34)
--- NOTE | 2019-03-17 11:40 | PN ---
Date/Time of Note Date/Time of Note DATE: 03/17/19 TIME: 11:28 Assessment/Plan VTE Prophylaxis Risk score (from Ns)>0 risk: 3 SCD applied (from Ns): Yes Pharmacological prophylaxis: NA/contraindicated Pharm contraindication: low risk/ambulating Lines/Catheters IV [facility] [place] Assessment/Plan Assessment/Plan 64 yo woman with history of diabetes type II presents hypotensive with nausea, vomiting, also hyperglycemic. #Severe sepsis - tachypenic, tachycardic, hypotensive, elevated lactic acid - Likely from UTI. - Continue IV antibiotics. - Flu swab was not done on admission or even yesterday. #UTI - She denies dysuria but does have dirty urine and is septic. - IV ceftriaxone q24h - Urine culture E coli sensitive to ceftriaxone and nitrofurantoin, resistant to fluoroquinolones. #Diabetes type II - At home on insulin 26u BID - Will switch to glargine qhs 30u, titrate accordingly - Also sliding scale. DVT: SCDs GI: None Dispo: Discharge in 24-48 hours pending clinical improvement. Result Diagram: 03/16/1931 03/16/19530 Subjective 24 Hr Interval Summary Free Text/Dictation Last night had R hand numbness and tingling consistent with carpal tunnel syndrome. Now resolved. Today feeling better. Nausea has resolved. Still has dizziness when standing. Exam/Review of Systems Exam Vitals Vital Signs Date Temp Pulse Resp B/P (MAP) Pulse Ox O2 O2 Flow FiO2 Time Delivery Rate 03/17/19 98.0 71 19 122/67 96 07:21 (85) 03/16/19 Room Air 15:10 Intake and Output 03/16/19 03/16/19 03/17/19 1515:00 23:00 07:00 IntakeIntake Total 560 ml 680 ml 300 ml BalanceBalance 560 ml 680 ml 300 ml Exam Gen: Fatigued appearing woman in no acute distress. Eyes: PERRL, no icterus HEENT: Moist mucous membranes, clear oropharynx Neck: Supple, no lymphadenopathy, no jugular venous distension Card: Regular rate and rhythm, no murmurs Pulm: Clear to auscultation bilaterally. Back: Mild midline spine tenderness around T5-8. Abd: Soft, nontender to palpation, nondistended. Normoactive bowel sounds. Ext: No cyanosis/clubbing/edema. Skin: No jaundice. Warm, dry, well perfused. Results Results 24hrs Laboratory Tests Test 03/16/19 11:38 03/16/19 17:15 03/16/19 20:30 03/17/19 01:38 Bedside Glucose 130 188 362 H 236 H Test 03/17/19 07:58 Bedside Glucose 195 Medications Medication Current Medications IV Flush (NS 3 ml) 3 ml PER PROTOCOL IV ; Start 03/15/19 at 18:30 Ondansetron HCl (Zofran Inj) 4 mg Q6H PRN IV NAUSEA/VOMITING; Start 03/15/19 at 18:30 Acetaminophen (Tylenol Tab) 650 mg Q6H PRN PO .PAIN 1-3 OR TEMP Last administered on 03/16/19 08:18; Admin Dose 650 MG; Start 03/15/19 at 18:30 Ceftriaxone Sodium 50 ml @ 100 mls/hr Q24H IVPB Last administered on 03/16/19 17:34; Admin Dose 100 MLS/HR; Start 03/15/19 at 18:30 Diagnostic Test (Pha) (Accu-Chek) 1 ea 02 XX Last administered on 03/17/19 02:46; Admin Dose 1 EA; Start 03/16/19 at 02:00 Insulin Glargine (Lantus) 30 units DAILY@2000 SC Last administered on 03/16/19 20:43; Admin Dose 30 UNITS; Start 03/15/19 at 20:00 Insulin Aspart (Novolog Insulin Pen) NOVOLOG *MODERATE* ALGORITHM WITH MEALS BEDTIME SC Last administered on 03/17/19 08:04; Admin Dose 4 UNIT; Start 03/15/19 at 21:00 Miscellaneous Information 1 ea NOTE XX ; Start 03/15/19 at 19:00 Glucose (Glutose) 15 gm Q15M PRN PO DECREASED GLUCOSE; Start 03/15/19 at 19:00 Glucose (Glutose) 22.5 gm Q15M PRN PO DECREASED GLUCOSE; Start 03/15/19 at 19:00 Dextrose (D50w Syringe) 25 ml Q15M PRN IV DECREASED GLUCOSE; Start 03/15/19 at 19:00 Dextrose (D50w Syringe) 50 ml Q15M PRN IV DECREASED GLUCOSE; Start 03/15/19 at 19:00 Glucagon (Glucagen) 1 mg Q15M PRN IM DECREASED GLUCOSE; Start 03/15/19 at 19:00 Glucose (Glutose) 15 gm Q15M PRN BUCCAL DECREASED GLUCOSE; Start 03/15/19 at 19:00 ELVIRA BOBBY MD Mar 17, 2019 11:38
[2019-03-17] MEDS: ACETAMINOPHEN 325 MG TAB PO PRN (14:32)
[2019-03-17] MEDS: CEFTRIAXONE 1 GM/50 ML (PMX) 50 ML IVPB SCH (18:32)
[2019-03-17] MEDS: INSULIN GLARGINE [LANTus] (100 UNITS/ML) SYG SC SCH (20:36)
[2019-03-18] MEDS: ACETAMINOPHEN 325 MG TAB PO PRN ×2 (00:03→09:06)
[2019-03-18] MEDS: ACCU-CHEK XX SCH (02:15)
[2019-03-18 04:00] VITALS: BP 129/66; PULSE 65; RESP 18
[2019-03-18 07:20] VITALS: BP 127/71; PULSE 66; RESP 18
[2019-03-18] MEDS: INSULIN ASPART [NOVOLOG] 3 ML PEN SC SCH ×4 (08:06→12:13)
[2019-03-18 11:16] VITALS: BP 109/53; PULSE 73; RESP 18
--- NOTE | 2019-03-18 12:16 | PDOCDIS ---
Discharge Instructions DIAGNOSIS Discharge Diagnosis Acute UTI CONDITION [id number] Patient Condition: Quenu8w Good HOME CARE INSTRUCTIONS: [id number] Special Diet: [id number] Consistent carbohydrate ACTIVITY: [id number] Activity Restrictions: [id number] No Restrictions FOLLOW UP/APPOINTMENTS Follow-up Plan 1. Take five more days of antibiotics as prescribed. 2. Continue your insulin as previously prescribed. Eat a low-carbohydrate diet to keep your blood sugar under control. 3. See your primary care doctor in 1-2 weeks. 1. Babbitt andrea lemons ms de antibiticos segn lo prescrito. 2. Contine desir insulina segn lo prescrito previamente. Coma calvin dieta baja en carbohidratos para mantener desir azcar en la chandana bajo control. 3. Consulte a desir mdico de atencin primaria en 1-2 semanas. ELVIRA BOBBY MD Mar 18, 2019 12:16
--- NOTE | 2019-03-18 14:42 | DS ---
Date/Time of Note Date/Time of Note DATE: 03/18/19 TIME: 14:41 Discharge Summary Admission/Discharge Info Admit Date/Time Mar 15, 2019 at 18:09 Discharge Date/Time Mar 18, 2019 Discharge Diagnosis Acute UTI Patient Condition: Good Hx of Present Illness Ms. Martin is a 64 yo woman who presents with progressively worsening dizziness and nausea over the past 4 days. She was in her usual state of health until about 4 days ago. She gradually developed generalized malaise, nausea, and dizziness which has worsened over the past 4 days. Also complains of mid back pain. Has had leg cramps for a month. Sh sushila does have mild pleuritic chest pain with deep inspiration. She vomited once this morning, nonbloody. She denies dysuria. She has insulin-dependent diabetes, she takes 26 units of insulin twice daily. She says blood sugars are usually below 180s and she was surprised to see a blood sugar greater than 300 in the emergency room. In the ED she was afebrile, hypotensive to 81/46, P 93, tachypenic to 30. Labs notable for glucose 367, lactate 2.4, negative troponin. UA had leukesterase and bacteria. Hospital Course She was started on IV ceftriaxone for suspected UTI. Urine cultures grew out E Coli resistant to fluoroquinolones and Bactrim. Her dizziness and nausea gradually resolved over the hospital course. At time of discharge she was to lerating diet and ambulating well without assistance. She will be discharged to finish a course of nitrofurantoin. Home Meds Reported Medications Insulin Glargine* (Lantus*) 100 Unit/Ml Soln, 25 UNIT SC DAILY, #1 VIAL 03/15/19 Insulin Aspart* (Novolog Insulin Pen*) 100 Unit/Ml Soln, 5 UNIT SC WITH MEALS, EA 03/15/19 Discontinued Reported Medications [Cholesterol] Unknown Strength No Conflict Check, 1 TAB PO QHS 10/22/17 Aspirin* (Aspirin* EC) 81 Mg Tablet.dr, 81 MG PO DAILY, TAB 10/22/17 Discontinued Scripts Ibuprofen* (Motrin*) 400 Mg Tab, 400 MG PO Q6, #30 TAB Prov:DERECK LARSEN NP 11/23/18 Cephalexin* (Keflex*) 500 Mg Capsule, 500 MG PO QID for 7 Days, #28 CAP Prov:DERECK LARSEN NP 11/23/18 Sulfamethoxazole/Trimethoprim* (Bactrim Ds* Tablet) 1 Each Tablet, 1 TAB PO BID for 7 Days, #14 TAB Prov:DERECK LARSEN NP 11/23/18 Peg 400/Hypromellose/Glycerin (Visine Dry Eye Relief Drop) 15 Ml Drops, 1 DROP OP Q4H for eye itchiness, #1 BOTTLE Prov:ANTHONY PYLE 06/14/18 Naphazoline Hcl/Phenir Mal (Naphcon-A Eye Drops) 15 Ml Drops, 2 DROP OP Q6H for eye itchiness, #1 BOTTLE Prov:ANTHONY PYLE DO 06/14/18 Prednisone* (Prednisone*) 50 Mg Tablet, 50 MG PO DAILY for 5 Days, #5 TAB Prov:ZEV BARRIENTOS MD 01/18/18 Hydrocodone/Acetaminophen (Peterson 5-325 Tablet) 1 Each Tablet, 1 EACH PO BID for 7 Days, #14 TAB Prov:ZEV BARRIENTOS MD 01/18/18 Capsaicin (Capsaicin) 42.5 Gm Cream.gm., 1 APPLIC TOP QID, #1 TUB Prov:ZEV BARRIENTOS MD 01/18/18 Hydrocodone/Acetaminophen (Peterson 10-325 Tablet) 1 Each Tablet, 1 TAB PO Q6H PRN for PAIN, #20 TAB Prov:JEFFREY MACARIO PA-C 12/04/17 Metformin Hcl* (Metformin Hcl*) 500 Mg Tablet, 500 MG PO WITH BREAKFAST DINNE, #60 TAB Prov:ALVAREZ FREEMAN MD 11/20/17 Insulin Aspart* (Novolog Insulin Pen*) 100 Unit/Ml Soln, 5 UNIT SC WITH MEALS for 30 Days Prov:ALVAREZ FREEMAN MD 11/20/17 Insulin Glargine* (Lantus*) 100 Unit/Ml Soln, 25 UNIT SC DAILY@20 for 30 Days Prov:ALVAREZ FREEMAN MD 11/20/17 Levofloxacin* (Levaquin*) 250 Mg Tablet, 250 MG PO DAILY@06 for 6 Days, TAB Prov:ALVAREZ FREEMAN MD 11/20/17 Methadone Hcl* (Methadone*) 5 Mg/5 Ml Solution, 1 MG PO Q12H, #10 Prov:ALVAREZ FREEMAN MD 11/20/17 Pregabalin* (Lyrica*) 75 Mg Capsule, 75 MG PO BID for 30 Days, CAP Prov:ALVAREZ FREEMAN MD 11/20/17 Hydrocodone/Acetaminophen (Peterson 10-325 Tablet) 1 Each Tablet, 1 TAB PO Q6H PRN for PAIN, #30 TAB Prov:DAVID PAREDES DO 11/08/17 Ranitidine Hcl* (Zantac*) 150 Mg Tablet, 150 MG PO BID PRN for EPIGASTRIC PAIN, #30 TAB Prov:NARDA GREEN DO 10/23/17 Ibuprofen* (Motrin*) 600 Mg Tab, 600 MG PO Q6 PRN for PAIN, #30 TAB Prov:DARLING PIERCE MD 10/22/17 Follow-up Plan 1. Take five more days of antibiotics as prescribed. 2. Continue your insulin as previously prescribed. Eat a low-carbohydrate diet to keep your blood sugar under control. 3. See your primary care doctor in 1-2 weeks. 1. [place] andrea lemons ms de antibiticos segn lo prescrito. 2. Contine desir insulina segn lo prescrito previamente. Coma calvin dieta baja en carbohidratos para mantener desir azcar en la chandana bajo control. 3. Consulte a desir mdico de atencin primaria en 1-2 semanas. Primary Care Provider Care Physician No Primary Time spent on discharge: > 30 minutes Pending Labs Laboratory Tests Test 03/17/19 17:14 03/17/19 20:26 03/18/19 01:40 03/18/19 07:50 Bedside 197 235 239 180 Glucose mg/dL (70-220) mg/dL (70-220) mg/dL (70-220) mg/dL (70-220) Test 03/18/19 12:07 Bedside 132 Glucose mg/dL (70-220) ELVIRA BOBBY MD Mar 18, 2019 14:42
[2019-03-18 15:19] VITALS: BP 131/60; PULSE 77; RESP 18
== END 2019-03-18 16:07 | disposition home or self-care (01) | DRG 872 ==
LOC: E/R 15:47 → 6WM 18:09 → CANRESERV 19:42 → 6WM 20:45
PROVIDERS: ADMIT Internal Medicine; ATTEND Internal Medicine
DX: A41.9 Sepsis, unspecified organism (principal); N39.0 Urinary tract infection, site not specified; R65.20 Severe sepsis without septic shock; B96.89 Other specified bacterial agents as the cause of diseases classified elsewhere
CPT/HCPCS: 36415; 71045; 80053; 80061; 81001; 81003; 82962; 83036; 83605; 83735; 84100; 84443; 84484; 85025; 85610; 85730; 87086; 87400; 93005; 96374; 97161; J0696; J1815; J2543; J3370; J7030; J7120